=== PATIENT | male | born 1925 | race Caucasian/White ===

== ENCOUNTER 2017-06-29 14:35 | Emergency (ER) | payer OTHER ==
[~2017-06-29] VITALS: Ht 175.3 cm; Wt 96.2 kg
[~2017-06-29 14:35] MED LIST: ACETAMINOPHEN325 M1 PO; ACYCLOVIR 800800 MG PO; AMLODIPINE BESYL5 MG PO; AMOXICILLIN/POTASSIU PO; AMOXICILLIN500 M1 PO; ASA81BEC PO; CARVEDILOL12.5 MG PO; CARVEDILOL3.125 MG PO; COUMADIN 1MG TAB1 M1 PO; COUMADIN 2 MG TA2 M1 PO; DICLOXACILLIN500 MG OR; DIOVAN HCT 3201 EAC1 PO; DIOVAN320 MG PO; GLUCOPHAGE500 MG PO; MILK OF MAGNESIA PO; NORCO 5-325 TA1 EACH PO; PHENERGAN 25 MG25 MG PO; TESSALON PERLE100 MG PO
[2017-06-29] MEDS ORDERED: COUMADIN 2 MG TA2 M1 PO (14:48)
[2017-06-29] MEDS ORDERED: COUMADIN 1MG TAB1 M1 PO (14:48)
[2017-06-29 15:25] LABS: HEMOGLOBIN 13.9 gm/dL (14.0-18.0); NUCLEATED RBCS 0 /100WBC; RDW-CV 13.9 % (10.5-14.5)
[2017-06-29 15:27] LABS: ABSOLUTE EOSINOPHILS 0.2 thou/uL (0.0-0.7); ABSOLUTE LYMPHOCYTES 1.7 thou/uL (0.8-5.3); ABSOLUTE MONOCYTES 1.1 thou/uL (0.0-1.2); ABSOLUTE NEUTROPHILS 4.9 thou/uL (1.6-8.1); BASOPHILS 0.6 %; EOSINOPHILS 1.9 %; HEMATOCRIT 40.8 % (42.0-52.0); LYMPHOCYTES 21.4 %; MCH 31.7 pg (26.0-34.0); MCHC 34.2 g/dL (28.0-37.0); MCV 92.7 fL (80.0-100.0); MONOCYTES 14.2 %; MPV 8.2 fl. (7.2-11.1); PLATELET COUNT* 232 thou/uL (150-400); POLYS 61.9 %
[2017-06-29 15:33] LABS: ALBUMIN 4.3 g/dL (3.4-5.0); CALCIUM 9.1 mg/dL (8.5-10.1); CREATININE 1.4 mg/dL (0.6-1.3); POTASSIUM 4.2 mmol/L (3.5-5.1); TOTAL BILIRUBIN 0.5 mg/dL (<0.1-1.0); TOTAL PROTEIN 7.6 g/dL (6.4-8.2)
[2017-06-29] MEDS ORDERED: KEFLEX500 M1 PO (15:53)
[2017-06-29] MEDS ORDERED: BACTRIM DS TAB1 EACH PO (15:53)
[2017-06-29] MEDS ORDERED: BACTROBAN CREAM30 G1 TOP (15:54)
[2017-06-29] MEDS ORDERED: MEDROLDOSEPACK PO (15:55)
[2017-06-29 17:44] VITALS: BP 154/65
== END 2017-06-29 17:46 | disposition home or self-care (01) ==
LOC: M.ERS 14:35
PROVIDERS: Physician Assistant
DX: L03.116 Cellulitis of left lower limb (principal); E11.9 Type 2 diabetes mellitus without complications; I48.91 Unspecified atrial fibrillation; Z88.8 Allergy status to other drugs, medicaments and biological substances

== ENCOUNTER → 2017-07-09 | Outpatient (CLI) | payer OTHER ==
[~2017-07-09] MED LIST changes: +BACTRIM DS TAB1 EACH PO; +BACTROBAN CREAM30 G1 TOP; +KEFLEX500 M1 PO; +MEDROLDOSEPACK PO
== END ==
LOC: M.WC 01:31
DX: I70.232 Atherosclerosis of native arteries of right leg with ulceration of calf (principal); E11.622 Type 2 diabetes mellitus with other skin ulcer; L97.211 Non-pressure chronic ulcer of right calf limited to breakdown of skin; I25.10 Atherosclerotic heart disease of native coronary artery without angina pectoris; I48.2 Chronic atrial fibrillation; I35.8 Other nonrheumatic aortic valve disorders; I10 Essential (primary) hypertension; Z95.1 Presence of aortocoronary bypass graft

== ENCOUNTER → 2017-07-12 | Outpatient (CLI) | payer OTHER | LOC: M.ULTRA 12:38 | DX: I73.9 Peripheral vascular disease, unspecified (principal) ==

== ENCOUNTER → 2017-07-19 | Outpatient (CLI) | payer OTHER | LOC: M.WC 07-16 11:00 | DX: E11.622 Type 2 diabetes mellitus with other skin ulcer (principal); I70.232 Atherosclerosis of native arteries of right leg with ulceration of calf; L97.211 Non-pressure chronic ulcer of right calf limited to breakdown of skin; I25.10 Atherosclerotic heart disease of native coronary artery without angina pectoris; I48.2 Chronic atrial fibrillation; I35.8 Other nonrheumatic aortic valve disorders; I10 Essential (primary) hypertension; Z95.1 Presence of aortocoronary bypass graft ==

== ENCOUNTER → 2017-07-26 | Outpatient (CLI) | payer OTHER | LOC: M.WC 01:56 | DX: E11.622 Type 2 diabetes mellitus with other skin ulcer (principal); L97.211 Non-pressure chronic ulcer of right calf limited to breakdown of skin; I70.232 Atherosclerosis of native arteries of right leg with ulceration of calf; I25.10 Atherosclerotic heart disease of native coronary artery without angina pectoris; E11.65 Type 2 diabetes mellitus with hyperglycemia; I48.2 Chronic atrial fibrillation; I10 Essential (primary) hypertension; Z68.30 Body mass index [BMI] 30.0-30.9, adult; Z95.1 Presence of aortocoronary bypass graft ==

== ENCOUNTER → 2017-08-02 | Outpatient (CLI) | payer OTHER | LOC: M.WC 00:08 | DX: E11.622 Type 2 diabetes mellitus with other skin ulcer (principal); I70.232 Atherosclerosis of native arteries of right leg with ulceration of calf; L97.211 Non-pressure chronic ulcer of right calf limited to breakdown of skin; I25.10 Atherosclerotic heart disease of native coronary artery without angina pectoris; I48.2 Chronic atrial fibrillation; I35.8 Other nonrheumatic aortic valve disorders; I10 Essential (primary) hypertension; I48.91 Unspecified atrial fibrillation; Z95.1 Presence of aortocoronary bypass graft ==

== ENCOUNTER → 2017-08-16 | Outpatient (CLI) | payer OTHER | LOC: M.WC 00:50 | DX: E11.622 Type 2 diabetes mellitus with other skin ulcer (principal); L97.811 Non-pressure chronic ulcer of other part of right lower leg limited to breakdown of skin; E11.621 Type 2 diabetes mellitus with foot ulcer; L97.511 Non-pressure chronic ulcer of other part of right foot limited to breakdown of skin; I70.232 Atherosclerosis of native arteries of right leg with ulceration of calf; I10 Essential (primary) hypertension; E11.65 Type 2 diabetes mellitus with hyperglycemia; I25.10 Atherosclerotic heart disease of native coronary artery without angina pectoris; I48.2 Chronic atrial fibrillation; I35.8 Other nonrheumatic aortic valve disorders; Z68.30 Body mass index [BMI] 30.0-30.9, adult; Z95.1 Presence of aortocoronary bypass graft ==

== ENCOUNTER → 2017-09-06 | Outpatient (CLI) | payer OTHER | LOC: M.WC 08-30 01:19 | DX: T79.2XXD Traumatic secondary and recurrent hemorrhage and seroma, subsequent encounter (principal); E11.622 Type 2 diabetes mellitus with other skin ulcer; L97.211 Non-pressure chronic ulcer of right calf limited to breakdown of skin; L97.821 Non-pressure chronic ulcer of other part of left lower leg limited to breakdown of skin; I70.232 Atherosclerosis of native arteries of right leg with ulceration of calf; I25.10 Atherosclerotic heart disease of native coronary artery without angina pectoris; I48.2 Chronic atrial fibrillation; I35.8 Other nonrheumatic aortic valve disorders; I10 Essential (primary) hypertension; Z68.30 Body mass index [BMI] 30.0-30.9, adult; Z95.1 Presence of aortocoronary bypass graft; Y83.8 Other surgical procedures as the cause of abnormal reaction of the patient, or of later complication, without mention of misadventure at the time of the procedure ==

== ENCOUNTER → 2017-09-13 | Outpatient (CLI) | payer OTHER | LOC: M.WC 01:39 | DX: T79.2XXD Traumatic secondary and recurrent hemorrhage and seroma, subsequent encounter (principal); E11.622 Type 2 diabetes mellitus with other skin ulcer; I70.232 Atherosclerosis of native arteries of right leg with ulceration of calf; L97.211 Non-pressure chronic ulcer of right calf limited to breakdown of skin; L97.821 Non-pressure chronic ulcer of other part of left lower leg limited to breakdown of skin; I25.10 Atherosclerotic heart disease of native coronary artery without angina pectoris; I48.2 Chronic atrial fibrillation; I35.8 Other nonrheumatic aortic valve disorders; I10 Essential (primary) hypertension; Z68.30 Body mass index [BMI] 30.0-30.9, adult; Z95.1 Presence of aortocoronary bypass graft; Y83.8 Other surgical procedures as the cause of abnormal reaction of the patient, or of later complication, without mention of misadventure at the time of the procedure ==